=== PATIENT | female | born 1990 | race Caucasian/White ===

== ENCOUNTER 2021-04-21 08:02 | Emergency (ER) | payer SELFPAY ==
[~2021-04-21] VITALS: Ht 162.6 cm; Wt 79.4 kg
[2021-04-21 08:12] VITALS: BP 126/84
--- NOTE | 2021-04-21 08:33 | NUR ---
Patient discharged to home in stable condition. Written and verbal after care instructions given. Patient verbalizes understanding of instruction.
== END 2021-04-21 08:34 | disposition home or self-care (01) ==
LOC: ER 08:18
DX: U07.1 COVID-19 (principal); M79.10 Myalgia, unspecified site; J02.9 Acute pharyngitis, unspecified